=== PATIENT | female | born 1975 | race Caucasian/White ===

== ENCOUNTER 2017-01-09 21:07 | Emergency (ER) | payer OTHER ==
[~2017-01-09] VITALS: Ht 154.9 cm; Wt 78.9 kg
[2017-01-09] MEDS ORDERED: HYDROCODONE/APAP 5-325MG TABLET PO ONE (23:15)
[2017-01-09] MEDS ORDERED: HYDROCODONE/APAP 5-325MG TABLET ONE (23:23)
--- NOTE | 2017-01-09 23:44 | NUR ---
Patient discharged to home in stable conditon. Written and verbal after care instructions given. Patient verbalizes understanding of instructions.
== END 2017-01-09 23:46 | disposition home or self-care (01) ==
LOC: ER 21:13
DX: S56.10 Unspecified injury of flexor muscle, fascia and tendon of other and unspecified finger at forearm level (principal); I10 Essential (primary) hypertension; W22.8XXA Striking against or struck by other objects, initial encounter; Y93.89 Activity, other specified; Y99.8 Other external cause status; Y92.89 Other specified places as the place of occurrence of the external cause
CPT/HCPCS: 29130; 73140; 99284; A4663

== ENCOUNTER 2018-02-12 03:06 | Emergency (ER) | payer OTHER ==
[~2018-02-12] VITALS: Ht 154.9 cm; Wt 78.5 kg
--- NOTE | 2018-02-12 03:39 | NUR ---
PATIENT CLAIMS TO HAVE "SPIDER-LIKE BITES" ON HER FEET AND LEGS, WITH PAIN AND SWELLING. SMALL RED DOTS (4-6) ON FEET AND KNEES NOTED, ALONG WITH 2 ON HER ELBOWS. PATIENT CLAIMS SHE ONLY GETS THEM IN BED.
[2018-02-12] MEDS ORDERED: diphenhydrAMINE 50 MG CAPSULE PO ONE (04:00)
[2018-02-12] MEDS ORDERED: SULFAMETH/TRIMETH 800/160 MG TABLET PO ONE (04:00)
[2018-02-12] MEDS ORDERED: SULFAMETH/TRIMETH 800/160 MG TABLET ONE (04:16)
[2018-02-12] MEDS ORDERED: diphenhydrAMINE 50 MG CAPSULE ONE (04:17)
== END 2018-02-12 04:20 | disposition home or self-care (01) ==
LOC: ER 03:10
DX: S90.869A Insect bite (nonvenomous), unspecified foot, initial encounter (principal); S80.869A Insect bite (nonvenomous), unspecified lower leg, initial encounter; L08.9 Local infection of the skin and subcutaneous tissue, unspecified; I10 Essential (primary) hypertension; W57.XXXA Bitten or stung by nonvenomous insect and other nonvenomous arthropods, initial encounter; Y93.89 Activity, other specified; Y92.89 Other specified places as the place of occurrence of the external cause; Y99.8 Other external cause status
CPT/HCPCS: 99283; A4663; Q0163

== ENCOUNTER 2018-06-30 18:24 | Emergency (ER) | payer OTHER ==
[~2018-06-30] VITALS: Ht 154.9 cm; Wt 79.4 kg
[2018-06-30] MEDS ORDERED: ALBUTEROL SULFATE 2.5 MG/3 ML NEBU ONE (19:08)
[2018-06-30] MEDS ORDERED: IPRATROPIUM BROMIDE 0.5 MG/2.5 ML NEBU ONE (19:08)
[2018-06-30] MEDS ORDERED: ALBUTEROL SULFATE 2.5 MG/3 ML NEBU NEB ONE (19:15)
[2018-06-30] MEDS ORDERED: predniSONE 10 MG TABLET PO ONE (19:15)
[2018-06-30] MEDS ORDERED: IPRATROPIUM BROMIDE 0.5 MG/2.5 ML NEBU NEB ONE (19:15)
[2018-06-30 19:22] LABS: BASOPHILS # (AUTO) 0.1 K/uL (0.0-8.0); BASOPHILS % (AUTO) 0.6 % (0.0-2.0); EOSINOPHILS # (AUTO) 0.1 K/uL (0.0-0.7); EOSINOPHILS % (AUTO) 0.8 % (0.0-7.0); HEMATOCRIT 41.2 % (31.2-41.9); LYMPHOCYTES # (AUTO) 3.2 K/uL (20.0-40.0); LYMPHOCYTES % (AUTO) 31.9 % (20.5-51.5); MEAN CORPUSCULAR HEMOGLOBIN 32.8 uug (24.7-32.8); MEAN CORPUSCULAR HGB CONC 34 g/dL (32.3-35.6); MEAN CORPUSCULAR VOLUME 96.7 fL (75.5-95.3); MONOCYTES # (AUTO) 0.6 K/uL (2.0-10.0); MONOCYTES % (AUTO) 6.1 % (0.0-11.0); NEUTROPHILS # (AUTO) 6.2 K/uL (1.8-8.9); NEUTROPHILS % (AUTO) 60.6 % (38.5-71.5); PLATELET COUNT (AUTO) 215 K/uL (179-408); RED BLOOD CELL COUNT(AUTO) 4.26 MIL/uL (3.63-4.92); WHITE BLOOD COUNT (AUTO) 10.2 K/uL (3.8-11.8)
[2018-06-30 19:24] LABS: CREATININE 0.8 mg/dL (0.6-1.3); POTASSIUM 3.7 mmol/L (3.5-5.1)
[2018-06-30 19:31] LABS: BILIRUBIN,DIRECT 0.1 mg/dL (0.0-0.2); BILIRUBIN,TOTAL 0.2 mg/dL (0.2-1.0); TOTAL PROTEIN, SERUM 6.5 g/dL (6.4-8.2)
[2018-06-30] MEDS ORDERED: predniSONE 20 MG TABLET ONE (19:54)
--- NOTE | 2018-06-30 20:33 | NUR ---
Patient discharged to home in stable conditon. Written and verbal after care instructions given. Patient verbalizes understanding of instructions. Pt left ER in steady gait with . Pt states she will make an appointment to see her MD. All belongings with pt. Pt states breathing treatment helped her.
[2018-06-30 20:35] VITALS: BP 138/81
== END 2018-06-30 20:37 | disposition home or self-care (01) ==
LOC: ER 18:26
DX: T78.3XXA Angioneurotic edema, initial encounter (principal); I10 Essential (primary) hypertension; E03.9 Hypothyroidism, unspecified
CPT/HCPCS: 36415; 70490; 80048; 80076; 84484; 84702; 85025; 94640; 99284; J7512; 70030-TC; A4663; J3590

== ENCOUNTER 2018-11-15 20:13 | Emergency (ER) | payer OTHER ==
[~2018-11-15] VITALS: Ht 154.9 cm; Wt 84.4 kg
[2018-11-15] MEDS ORDERED: ONDANSETRON 4 MG/2 ML VIAL IM ONE ×2 (20:45→21:45)
[2018-11-15] MEDS ORDERED: HYDROMORPHONE 1 MG/1 ML DISP.SYRIN IM ONE ×2 (20:45→21:45)
[2018-11-15] MEDS ORDERED: HYDROMORPHONE 1 MG/1 ML DISP.SYRIN ONE (20:48)
[2018-11-15] MEDS ORDERED: ONDANSETRON 4 MG/2 ML VIAL ONE ×2 (20:48→21:43)
[2018-11-15] MEDS ORDERED: HYDROMORPHONE 2 MG/1 ML DISP.SYRIN ONE (21:43)
[2018-11-15 21:50] VITALS: BP 74/81
== END 2018-11-15 21:51 | disposition home or self-care (01) ==
LOC: ER 20:15
DX: N83.202 Unspecified ovarian cyst, left side (principal); I10 Essential (primary) hypertension; F17.200 Nicotine dependence, unspecified, uncomplicated
CPT/HCPCS: 76856; 96372 ×4; 99284; J1170 ×2; J2405 ×2; A4663

== ENCOUNTER 2018-12-06 19:28 | Emergency (ER) | payer OTHER ==
[~2018-12-06] VITALS: Ht 154.9 cm; Wt 85.7 kg
--- NOTE | 2018-12-06 19:40 | NUR ---
Walked in to ER c/o L calf pain, insect bite?. To room 2A.
--- NOTE | 2018-12-06 19:45 | NUR ---
Seen and evaluated by Dr. Sullivan. Bedside ultrasound of L leg done by MD. Plan of care discussed.
--- NOTE | 2018-12-06 20:05 | NUR ---
To Xray per wheelchair.
[2018-12-06] MEDS ORDERED: CEphaleXIN 500 MG CAPSULE PO ONE (20:15)
[2018-12-06] MEDS ORDERED: SULFAMETH/TRIMETH 800/160 MG TABLET PO ONE (20:15)
--- NOTE | 2018-12-06 20:15 | NUR ---
Back from Xray.
[2018-12-06] MEDS ORDERED: CEphaleXIN 500 MG CAPSULE ONE (20:22)
[2018-12-06] MEDS ORDERED: SULFAMETH/TRIMETH 800/160 MG TABLET ONE (20:22)
--- NOTE | 2018-12-06 20:27 | NUR ---
CXR results discussed by Dr. Sullivan with patient.
--- NOTE | 2018-12-06 20:45 | NUR ---
Patient discharged to home in stable conditon. Written and verbal after care instructions and prescriptions given. Patient verbalizes understanding of instructions.
[2018-12-06 20:49] VITALS: BP 125/70
== END 2018-12-06 20:45 | disposition home or self-care (01) ==
LOC: ER 19:28
DX: S80.862A Insect bite (nonvenomous), left lower leg, initial encounter (principal); S80.861A Insect bite (nonvenomous), right lower leg, initial encounter; L03.116 Cellulitis of left lower limb; R05 Cough; F17.290 Nicotine dependence, other tobacco product, uncomplicated; I10 Essential (primary) hypertension; W57.XXXA Bitten or stung by nonvenomous insect and other nonvenomous arthropods, initial encounter; Y93.89 Activity, other specified; Y92.89 Other specified places as the place of occurrence of the external cause; Y99.8 Other external cause status
CPT/HCPCS: 71046; A4663

== ENCOUNTER 2019-06-10 19:32 | Emergency (ER) | payer OTHER ==
[~2019-06-10] VITALS: Ht 154.9 cm; Wt 87.5 kg
[2019-06-10] MEDS ORDERED: HYDR-4354 PO (19:56)
[2019-06-10] MEDS ORDERED: [UNRECOGNIZED DRUG - REMARK] (19:56)
--- NOTE | 2019-06-10 20:07 | NUR ---
PT AMBULATORY ABLE TO VOID BUT STATES WITH PAIN, DENIES HEMATURIA NOTED BLADDER FULLNESS, DENIES POLYURIA VULVAR ITCHING ITCHING AND TENDERNESS CONSTANT SINCE AFTER L OVARIAN CYST EXICSION (FEB 2019) PT AOX4, ABLE TO SPEAK CLEAR AND COMPLETE SENTENCES NOT IN APPARENT DISTRESS PT ALSO REPORTS 3 ERYTHEMATOUS RASHES CIRCULAR W/ DISTINCT EDGES, FLAT AND PRURITIC FOR 2MOS (1 APPROX 4X5CM UNDERNEATH LEFT BREAST, 2 APPROX 1X1CM ON RIGHT ANKLE) HAS TRIED TOPICAL ANTIFUNGAL CREAM RAINA ROWAN MD AT BEDSIDE FOR HX AND PHYSICAL
[2019-06-10 20:28] LABS: BASOPHILS # (AUTO) 0.1 K/uL (0.0-8.0); BASOPHILS % (AUTO) 0.8 % (0.0-2.0); EOSINOPHILS # (AUTO) 0.2 K/uL (0.0-0.7); EOSINOPHILS % (AUTO) 1.6 % (0.0-7.0); HEMATOCRIT 39.9 % (31.2-41.9); HEMOGLOBIN 13.4 g/dL (10.9-14.3); LYMPHOCYTES # (AUTO) 2.9 K/uL (20.0-40.0); LYMPHOCYTES % (AUTO) 24.9 % (20.5-51.5); MEAN CORPUSCULAR HEMOGLOBIN 31.7 uug (24.7-32.8); MEAN CORPUSCULAR HGB CONC 34 g/dL (32.3-35.6); MEAN CORPUSCULAR VOLUME 94.5 fL (75.5-95.3); MONOCYTES # (AUTO) 0.8 K/uL (2.0-10.0); MONOCYTES % (AUTO) 6.9 % (0.0-11.0); NEUTROPHILS # (AUTO) 7.5 K/uL (1.8-8.9); NEUTROPHILS % (AUTO) 65.8 % (38.5-71.5); PLATELET COUNT (AUTO) 261 K/uL (179-408); RED BLOOD CELL COUNT(AUTO) 4.22 MIL/uL (3.63-4.92); WHITE BLOOD COUNT (AUTO) 11.5 K/uL (3.8-11.8)
[2019-06-10 20:29] LABS: *BILIRUBIN,URIN NEGATIVE (NEGATIVE); *BLOOD, URINE NEGATIVE (NEGATIVE); *CLARITY,URINE CLEAR (CLEAR); *COLOR,URINE YELLOW (YELLOW); *KETONES,URINE NEGATIVE (NEGATIVE); *UROBILINOGEN,URINE 0.2 E.U./dl (NORMAL); LEUKOCYTE ESTERASE ,URINE NEGATIVE (NEGATIVE); NITRITE, URINE NEGATIVE (NEGATIVE); UGLUCOSE NEGATIVE (NEGATIVE)
[2019-06-10 20:30] LABS: *URINE HCG, QUAL NEGATIVE (NEGATIVE)
--- NOTE | 2019-06-10 20:36 | NUR ---
PT C/O PAIN 04/07 TO THE SITE (LOWER ABD AND VULVAR AREA) TAKEN NORCO PO AT 1400 (INGREDIENT SCALER) BUT WITHOUT RELIEF WILL BE DRIVING
[2019-06-10 20:37] LABS: CREATININE 0.7 mg/dL (0.6-1.3); POTASSIUM 4.9 mmol/L (3.5-5.1)
[2019-06-10 20:43] LABS: BILIRUBIN,DIRECT 0.1 mg/dL (0.0-0.2); BILIRUBIN,TOTAL 0.3 mg/dL (0.2-1.0); TOTAL PROTEIN, SERUM 6.9 g/dL (6.4-8.2)
[2019-06-10] MEDS ORDERED: MORPHINE SULFATE 4 MG/1 ML DISP.SYRIN ONE (21:05)
[2019-06-10] MEDS ORDERED: MORPHINE SULFATE 4 MG/1 ML DISP.SYRIN IM ONE (21:15)
--- NOTE | 2019-06-10 22:30 | NUR ---
pelvic exam done by ermd chaperoned by RN pt kept warm dry and comfortable provided privacy pt able to tolerate the procedure
[2019-06-10] MEDS ORDERED: AZITHROMYCIN 250 MG TABLET PO ONE (23:30)
[2019-06-10] MEDS ORDERED: CEFTRIAXONE 500 MG VIAL IM ONE (23:30)
[2019-06-10] MEDS ORDERED: AZITHROMYCIN 250 MG TABLET ONE (23:36)
[2019-06-10] MEDS ORDERED: CEFTRIAXONE 500 MG VIAL ONE (23:37)
--- NOTE | 2019-06-10 23:50 | NUR ---
Patient discharged to home in stable conditon. Written and verbal after care instructions given. Patient verbalizes understanding of instructions. AMBULATORY W/ STABLE GAIT ALL BELONGINGS W/ PT
[2019-06-11 00:26] VITALS: BP 136/82
== END 2019-06-11 00:26 | disposition home or self-care (01) ==
LOC: ER 19:34
DX: R10.2 Pelvic and perineal pain (principal); R35.0 Frequency of micturition; R39.15 Urgency of urination; N89.8 Other specified noninflammatory disorders of vagina; R11.0 Nausea; I10 Essential (primary) hypertension; F17.200 Nicotine dependence, unspecified, uncomplicated; Z79.899 Other long term (current) drug therapy
CPT/HCPCS: 36415; 74176; 80048; 80076; 81001; 83690; 84703; 85025; 87210; 96372 ×2; 99284; J0696; J2270; A4663; Q0144

== ENCOUNTER 2020-09-11 14:22 | Emergency (ER) | payer BC, OTHER ==
[~2020-09-11] VITALS: Ht 154.9 cm; Wt 80.7 kg
[~2020-09-11 14:22] MED LIST: HYDR-4354 PO; [UNRECOGNIZED DRUG - REMARK]
[2020-09-11] MEDS ORDERED: IV NORMAL SALINE 1000 ML BAG IV ONE (14:45)
[2020-09-11] MEDS ORDERED: ONDANSETRON 4 MG/2 ML VIAL IV ONE (14:45)
[2020-09-11 15:03] LABS: BASOPHILS # (AUTO) 0.1 K/uL (0.0-8.0); BASOPHILS % (AUTO) 0.5 % (0.0-2.0); EOSINOPHILS # (AUTO) 0.1 K/uL (0.0-0.7); EOSINOPHILS % (AUTO) 0.9 % (0.0-7.0); HEMATOCRIT 41.5 % (31.2-41.9); HEMOGLOBIN 14.4 g/dL (10.9-14.3); LYMPHOCYTES % (AUTO) 28.2 % (20.5-51.5); MEAN CORPUSCULAR HEMOGLOBIN 32.7 uug (24.7-32.8); MEAN CORPUSCULAR HGB CONC 35 g/dL (32.3-35.6); MEAN CORPUSCULAR VOLUME 94.2 fL (75.5-95.3); MONOCYTES # (AUTO) 0.7 K/uL (2.0-10.0); MONOCYTES % (AUTO) 6.7 % (0.0-11.0); NEUTROPHILS # (AUTO) 6.7 K/uL (1.8-8.9); NEUTROPHILS % (AUTO) 63.7 % (38.5-71.5); PLATELET COUNT (AUTO) 232 K/uL (179-408); RED BLOOD CELL COUNT(AUTO) 4.41 MIL/uL (3.63-4.92); WHITE BLOOD COUNT (AUTO) 10.5 K/uL (3.8-11.8)
[2020-09-11] MEDS ORDERED: PROP40TA7 PO (15:03)
[2020-09-11] MEDS ORDERED: HYDR12.55 PO (15:03)
[2020-09-11] MEDS ORDERED: MELO-107 PO (15:03)
[2020-09-11] MEDS ORDERED: LEVO175T7 PO (15:03)
[2020-09-11] MEDS ORDERED: ONDANSETRON 4 MG/2 ML VIAL ONE (15:03)
[2020-09-11] MEDS ORDERED: ATOR10TA PO (15:03)
[2020-09-11] MEDS ORDERED: LOSA25TA27 PO (15:03)
[2020-09-11 15:09] LABS: CREATININE 1.6 mg/dL (0.6-1.3); POTASSIUM 3.4 mmol/L (3.5-5.1)
[2020-09-11 15:14] LABS: BILIRUBIN,DIRECT 0.1 mg/dL (0.0-0.2); BILIRUBIN,TOTAL 0.4 mg/dL (0.2-1.0); TOTAL PROTEIN, SERUM 7.7 g/dL (6.4-8.2)
[2020-09-11 15:48] LABS: *BLOOD, URINE 2+ (NEGATIVE); *COLOR,URINE YELLOW (YELLOW); *KETONES,URINE 3+ (NEGATIVE); *UROBILINOGEN,URINE 0.2 E.U./dl (NORMAL); LEUKOCYTE ESTERASE ,URINE NEGATIVE (NEGATIVE); NITRITE, URINE NEGATIVE (NEGATIVE); PH,URINE 5.5 (5.0-8.0); UGLUCOSE NEGATIVE (NEGATIVE)
[2020-09-11 15:49] LABS: *URINE HCG, QUAL NEGATIVE (NEGATIVE)
[2020-09-11 15:50] LABS: *BILIRUBIN,URIN 1+ (NEGATIVE)
[2020-09-11] MEDS ORDERED: HYDROCODONE/APAP 5-325MG TABLET PO ONE (16:00)
[2020-09-11 16:02] LABS: *CLARITY,URINE SLIGHTLY HAZY (CLEAR); BACTERIA,URINE FEW /HPF (NONE SEEN); SQUAMOUS EPITHELIAL CELL,UR FEW /HPF (NONE SEEN)
[2020-09-11] MEDS ORDERED: HYDROCODONE/APAP 5-325MG TABLET ONE (16:22)
--- NOTE | 2020-09-11 16:46 | NUR ---
Patient discharged to home in stable condition. Written and verbal after care instructions given. Patient verbalizes understanding of instructions. Stressed follow up or return to ER for worsening s/s.pt walks in steady gait, deneis n/v or dizziness. pt says feels better.
[2020-09-11 16:47] VITALS: BP 121/77
== END 2020-09-11 16:47 | disposition home or self-care (01) ==
LOC: ER 14:22
DX: E86.0 Dehydration (principal); Z98.84 Bariatric surgery status; K76.0 Fatty (change of) liver, not elsewhere classified; E03.9 Hypothyroidism, unspecified; E78.5 Hyperlipidemia, unspecified; Z79.899 Other long term (current) drug therapy; I10 Essential (primary) hypertension; F17.200 Nicotine dependence, unspecified, uncomplicated
CPT/HCPCS: 36415; 74176; 80048; 80076; 81001; 83690; 84703; 85025; 96361; 96374; 99284; J2405; A4663; J7030